=== PATIENT | female | born 1990 | race Caucasian/White ===

== ENCOUNTER 2016-06-08 16:43 | Inpatient (IN) | payer OTHER ==
[2016-06-08] MEDS ORDERED: TYLENOL EXTRA STRENGTH 500 MG PO PRN (17:52)
[2016-06-08] MEDS ORDERED: XYLOCAINE 1% HCL 20 ML MDV IJ PRN (17:52)
[2016-06-08] MEDS ORDERED: PITOCIN 30 UNITS/ LR 500 ML 500 ML IV SCH (18:00)
[2016-06-08] MEDS ORDERED: Lactated Ringers 1,000 ML IV ONE (18:06)
[2016-06-08] MEDS ORDERED: OB EPIDURAL NAROPIN/SUFENTANIL IN NACL EPIDURAL PRN (18:06)
[2016-06-08] MEDS ORDERED: Ephedrine Sulfate 50 MG/ML IV PRN (18:06)
[2016-06-08 18:07] LABS: Mean Platelet Volume 9.4 fl (6-9.5); Platelet Count 253 K/mm3 (150-450); Red Blood Count 3.74 M/mm3 (4.1-5.4); Red Cell Distribution Width 13.6 % (11.5-14.0)
[2016-06-08 18:24] LABS: Mean Corpuscular Hemoglobin 30.4 pg (26-32)
[2016-06-08 20:16] LABS: BAND 2 % (0.0-2.0); Eosinophil 1 % (0.00-3.0); Total Cells Counted 100
[2016-06-08 20:17] LABS: ANISOCYTOSIS 1+; Platelet Estimate NORMAL (NORMAL); Polychromasia RARE
[2016-06-08] MEDS: Lactated Ringers 1,000 ML IV SCH (21:21)
[2016-06-08 22:12] VITALS: O2SAT 98
[2016-06-09] MEDS: Lactated Ringers 1,000 ML IV SCH ×2 (00:17→12:23)
[2016-06-09] MEDS ORDERED: Mylicon 80MG PO PRN (02:36)
[2016-06-09] MEDS ORDERED: TUCKS TP PRN (02:36)
[2016-06-09] MEDS ORDERED: Ambien 10 MG PO PRN (02:36)
[2016-06-09] MEDS ORDERED: Dermoplast Spray TP PRN (02:36)
[2016-06-09] MEDS ORDERED: TYLENOL EXTRA STRENGTH 500 MG PO PRN (02:36)
[2016-06-09] MEDS ORDERED: Tylenol #3 Tablet PO PRN (02:36)
[2016-06-09] MEDS ORDERED: CORTISONE 1% CREAM TP PRN (02:36)
[2016-06-09] MEDS ORDERED: Restoril 15 MG PO PRN (02:36)
[2016-06-09] MEDS ORDERED: MOTRIN 400 MG PO PRN (02:36)
[2016-06-09] MEDS ORDERED: LANSINOH 40 GM TOP PRN (02:36)
[2016-06-09] MEDS: CLINDAMYCIN-D5W 600 MG/50 ML*** 50 ML IV SCH ×2 (04:47→13:10)
[2016-06-09 09:06] LABS: BASOPHIL % 0.1 % (0.0-0.4); Eosinophil % 0.3 % (0.00-5.0); Granulocytes % 77.9 % (36.0-66.0); Lymphocytes % 14.4 % (24.0-44.0); Mean Cell Volume 91.8 fl (78-100); Mean Platelet Volume 9.4 fl (6-9.5); Monocytes % 7.3 % (0.0-12.0); Platelet Count 234 K/mm3 (150-450); Red Cell Distribution Width 13.7 % (11.5-14.0); White Blood Count 13.7 K/mm3 (4.0-10.5)
[2016-06-09 09:07] LABS: Mean Corpuscular Hemoglobin 30.2 pg (26-32)
[2016-06-09] MEDS ORDERED: Colace 100 MG PO SCH (10:00)
[2016-06-09] MEDS ORDERED: FERREX 150 PO SCH (10:00)
--- NOTE | 2016-06-09 15:55 | PCM.DS ---
Discharge Summary Date of Admission: 06/08/16 18:03 Admitting Physician: LORE MCCOY Consults: Consults on Case 06/08/16 18:09 Notify Anesthesia Provider PRN Primary Care Provider: LORE MCCOY Allergies Allergies No Known Drug Allergies Allergy (Verified 06/08/16 17:30) Hospital Summary - Hospital Course Hospital Course: Pt admitted for IOL due to pre-eclampsia. Delivered 9lb 2oz male who then developed respiratory distress and hypotonia and was transferred to NICU at [facility]. Pt had temp that increased to 100.0 just after delivery and she was started on IV clindamycin. Pt is not having any dizziness. Tolerating po. BP have been wnl aside from some elevation 15 min prior to and subsequent to delivery. Ready to d/c. Bleeding is light. - Vitals & Intake/Output Vital Signs: Vital Signs Temperature 98.3 F 06/09/16 08:00 Pulse Rate 90 06/09/16 12:00 Respiratory Rate 20 06/09/16 12:00 Blood Pressure 126/61 06/09/16 12:00 O2 Sat by Pulse Oximetry 98 06/08/16 22:00 Oxygen-Last Documented O2 Percentage 100% Intake & Output: Intake & Output 06/07/16 06/08/16 06/09/16 06/10/16 11:59 11:59 11:59 11:59 Intake Total 6630 Output Total 900 Balance 5730 Weight 99.79 kg - Lab Result Diagrams: 06/09/16 09:02 Lab Results-Last 24 Hrs: Lab Results-Last 24 Hours 06/08/16 06/08/16 06/09/16 Range/Units 18:00 18:34 09:02 WBC 9.0 13.7 H (4.0-10.5) K/mm3 RBC 3.74 L 3.80 L (4.1-5.4) M/mm3 Hgb 11.4 L 11.5 L (12.0-16.0) gm/dl Hct 34.4 L 34.9 L (35-47) % MCV 92.0 91.8 (78-100) fl MCH 30.4 30.2 (26-32) pg MCHC 33.1 33.0 (32-36) g/dl RDW 13.6 13.7 (11.5-14.0) % Plt Count 253 234 (150-450) K/mm3 MPV 9.4 9.4 (6-9.5) fl Gran % 77.9 H (36.0-66.0) % Lymphocytes % 14.4 L (24.0-44.0) % Monocytes % 7.3 (0.0-12.0) % Eosinophils % 0.3 (0.00-5.0) % Basophils % 0.1 (0.0-0.4) % Segmented Neutrophils 57 (36.0-66.0) % Band Neutrophils 2 (0.0-2.0) % Lymphocytes (Manual) 33 (24-44) % Monocytes (Manual) 7 (0.0-12.0) % Eosinophils (Manual) 1 (0.00-3.0) % Basophils # 0.02 (0-0.4) Differential Comment ABNORMAL Platelet Estimate NORMAL (NORMAL) Polychromasia RARE Anisocytosis 1+ Urine Opiates Level NEG. (NEGATIVE) Ur Methadone NEG. (NEGATIVE) Urine Barbiturates NEG. (NEGATIVE) Ur Phencyclidine (PCP) NEG. (NEGATIVE) Urine Amphetamine NEG. (NEGATIVE) U Benzodiazepine Level NEG. (NEGATIVE) Urine Cocaine NEG. (NEGATIVE) Urine Marijuana (THC) NEG. (NEGATIVE) Discharge Exam General Appearance: no apparent distress Neurologic Exam: alert, oriented x 3, cooperative Skin Exam: normal color, warm, dry Respiratory Exam: normal breath sounds, lungs clear, No crackles/rales, No rhonchi, No wheezing Cardiovascular Exam: regular rate/rhythm, normal heart sounds Gastrointestinal/Abdomen Exam: soft, other (fundus firm under umbilicus.) Extremity Exam: pedal edema (trace pretibial edema bilat), other (Pat refl 2+ bilat.) Back Exam: normal inspection Final Diagnosis/Problem List - Final Discharge Diagnosis/Problem (1) Spontaneous vaginal delivery Current Visit: Yes Status: Acute Assessment & Plan: PPD #0, delivery was 15 hours ago. Pt had very little bleeding during delivery and continues to have light bleeding. Third baby and she is doing great. Anxious to be with her son in NICU, which I think is reasonable. (2) Pre-eclampsia Current Visit: Yes Status: Acute Assessment & Plan: BP have been normal since 15min post . Never over 160 systolic. I did advise her and her mom that pt is at higher risk for eclamptic seizure in the first 48 hours after delivery, so I would like for her to continue checking her BP while at [facility] with her baby. I did write down parameters (seek medical attention for systolic BP > 160, or diastolic BP > 110, severe headache, visual changes/seeing spots, RUQ pain, increased edema). Advised she could be seen quickly in their ER or possibly LR triage. Pt and her mom (who is a nurse) voiced understanding. (3) Anemia Current Visit: Yes Status: Acute Priority: Low Assessment & Plan: Very, very mild. Does not need to be treated. - Discharge Disposition: Home, Self-Care Condition: Stable Prescriptions: No Action Vits W-Ca,Fe,FA(<1Mg) [] 1 each PO DAILY Additional Instructions: Make appointment to see Dr Mccoy in 1 wk. Take all medications as prescribed Follow up with: LORE MCCOY [Primary Care Provider] - 1 Week Forms: OB Discharge Instructions
[2016-06-09 19:43] VITALS: BP 128/74; PULSE 93
== END 2016-06-09 16:20 | disposition home or self-care (01) | DRG 775 ==
LOC: OB 17:11 → OBSVTOIN 18:03
PROVIDERS: ADMIT Family Medicine; ATTEND Family Medicine
PROC: 10E0XZZ Delivery of Products of Conception, External Approach (ICD-10-PCS; principal; 2016-06-09)
DX: O14.94 Unspecified pre-eclampsia, complicating childbirth (principal); Z3A.37 37 weeks gestation of pregnancy; Z37.0 Single live birth; D64.9 Anemia, unspecified
CPT/HCPCS: 36415; 80307; 85025; 87086; 88307; G0378; J2590; J2795